=== PATIENT | male | born 1985 | race Caucasian/White ===

== ENCOUNTER 2017-10-11 10:20 | Emergency (ER) | payer OTHER, SELFPAY ==
[2017-10-11] MEDS ORDERED: Lidocaine 1% w/Epinephrine 1:100K 20 ML VIAL ONE (10:29)
[2017-10-11] MEDS ORDERED: Fentanyl 100 MCG/2 ML VIAL ONE (10:29)
[2017-10-11] MEDS ORDERED: Ondansetron ODT 4 MG TAB ONE (10:29)
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
[2017-10-11] MEDS ORDERED: ISOVUE-370 76%-LOCM 1 ML ONE (13:34)
[2017-10-11] MEDS ORDERED: Acetaminophen 500 MG TAB ONE (13:50)
== END 2017-10-11 14:13 | disposition home or self-care (01) ==
LOC: ERS 10:20
DX: S22.030A Wedge compression fracture of third thoracic vertebra, initial encounter for closed fracture (principal); S22.040A Wedge compression fracture of fourth thoracic vertebra, initial encounter for closed fracture; S01.01XA Laceration without foreign body of scalp, initial encounter; F17.210 Nicotine dependence, cigarettes, uncomplicated; V43.62XA Car passenger injured in collision with other type car in traffic accident, initial encounter
CPT/HCPCS: 12004; 70450; 71260; 72125; 74177; 96374; G0390; J2001; J3010; Q0162

== ENCOUNTER 2017-10-20 16:39 | Emergency (ER) | payer OTHER, SELFPAY | END 2017-10-20 17:01 | disposition home or self-care (01) | LOC: ERS 16:39 | DX: S01.01XD Laceration without foreign body of scalp, subsequent encounter (principal); F17.210 Nicotine dependence, cigarettes, uncomplicated; Z79.899 Other long term (current) drug therapy ==

== ENCOUNTER 2017-11-16 09:51 | Outpatient (CLI) | payer BC ==
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
== END 2017-11-16 09:52 | disposition home or self-care (01) ==
LOC: TBSIIMAG 09:51
PROVIDERS: ATTEND Neurological Surgery
DX: M54.6 Pain in thoracic spine (principal)
CPT/HCPCS: 72070

== ENCOUNTER 2017-12-15 15:50 | Outpatient (CLI) | payer BC ==
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
== END 2017-12-15 15:51 | disposition home or self-care (01) ==
LOC: TBSIIMAG 15:50
PROVIDERS: ATTEND Neurological Surgery
DX: M48.56XA Collapsed vertebra, not elsewhere classified, lumbar region, initial encounter for fracture (principal)
CPT/HCPCS: 72072